=== PATIENT | female | born 1980 | race Caucasian/White ===

== ENCOUNTER 2023-08-19 13:53 | Emergency (ER) | payer OTHER, SELFPAY ==
[2023-08-19 14:07] VITALS: BP 125/76; PULSE 66; RESP 20; TEMP 36.1; O2SAT 100
--- NOTE | 2023-08-19 15:03 | ED.GENADULT ---
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 She is generally healthy. Last tetanus was about 10 years ago. She presents to ER today with an accidental wound to her right hand, middle finger. She was using a facing end trimmer after work when she actually caught her finger tip. She suffered a laceration to the distal finger pad just at the adjacent of the end of the finger nail plate. It creates a small flap of skin that was actively bleeding and now the flap skin is dusky. She is otherwise healthy. No history of diabetes or immunosuppression. No regular medications. No other injuries. Related Data Home Medications Medication Instructions Recorded Confirmed No Known Home Medications 08/19/23 08/19/23 Allergies Allergy/AdvReac Type Severity Reaction Status Date / Time No Known Drug Allergies Allergy Verified 08/19/23 14:19 Exam Narrative: Exam Narrative: Constitutional: Appears well-developed and well-nourished. Alert. Conversant. Non toxic. HENT: Head: Atraumatic. Nose: Nose normal. Mouth/Throat: Oral mucosa is clear and moist. no trismus. Pharynx normal. Tonsils symmetric. No tonsillar enlargement, erythema, or exudate. Eyes: Conjunctivae normal. EOM normal. Pupils equal, round, and reactive to light. No scleral icterus. Neck: Normal range of motion. Neck supple. No tracheal deviation present. Cardiovascular: Normal rate, regular rhythm. Symmetric radial artery pulses . Initially no active bleeding and the flap of skin at the distal finger pad is dusky. After I washed the wound is bleeding with dark red venous oozing. After suturing the flap remains dusky. Pulmonary/Chest: Effort normal. No stridor. No respiratory distress. Musculoskeletal: RUE: Normal range of motion. No tenderness. No deformity. There is a laceration at the distal pad of the right 3rd digit finger pad. There are 2 lacerations. One is linear and gaping about 1 mm. Total length about 1 cm that 1. There is a 2nd laceration that creates a oval shaped flap. Length of this laceration is approximately 1.5 cm and length of the flap is about 0.5 x 1 cm. This laceration does extend on to the distal nail bed just underneath the white part of the distal fingernail. No evidence for other finger nail or nail bed laceration. No exposed bone or evidence for fracture. Intact flexion and extension of the D IP, PIP, MCP. LUE: Normal range of motion. No tenderness. No deformity RLE: Normal range of motion. No edema. No tenderness. No deformity LLE: Normal range of motion. No edema. No tenderness. No deformity Neurological: Alert and oriented to person, place, and time. Normal strength. CN II-VII intact. No sensory deficit. GCS eye subscore is 4. GCS verbal subscore is 5. GCS motor subscore is 6. Normal coordination Skin: Skin is warm and dry. No rash noted. No pallor. Normal capillary refill. Psychiatric: Normal mood. Normal affect. Const: Vital Signs, click to edit/add: Vital Signs - 24 hr 08/19/23 14:07 Temperature 97.0 F L Pulse Rate [Left P ulse Oximeter] 66 Respiratory Rate 20 Blood Pressure [Ri ght Upper Arm] 125/76 Pulse Oximetry 100 Oxygen Delivery Me thod Room Air Course Vital Signs Vital signs: Initial Vital Signs Temperature 97.0 F L 08/19/23 14:07 Temperature Source Temporal Artery Scan 08/19/23 14:07 Pulse Rate 66 08/19/23 14:07 Pulse Rhythm Regular 08/19/23 14:07 Pulse Strength 3+ Normal 08/19/23 14:07 Respiratory Rate 20 08/19/23 14:07 Blood Pressure 125/76 08/19/23 14:07 Blood Pressure Mean 92 08/19/23 14:07 Blood Pressure Position Sitting 08/19/23 14:07 Pulse Oximetry 100 08/19/23 14:07 Oxygen Delivery Method Room Air 08/19/23 14:07 Vital Signs Temperature 97.0 F L 08/19/23 14:07 Pulse Rate 66 08/19/23 14:07 Respiratory Rate 20 08/19/23 14:07 Blood Pressure 125/76 08/19/23 14:07 Pulse Oximetry 100 08/19/23 14:07 Oxygen Delivery Method Room Air 08/19/23 14:07 Temperature 97.0 F L 08/19/23 14:07 Pulse Rate 66 08/19/23 14:07 Respiratory Rate 20 08/19/23 14:07 Blood Pressure 125/76 08/19/23 14:07 Pulse Oximetry 100 08/19/23 14:07 Oxygen Delivery Method Room Air 08/19/23 14:07 Medical Decision Making MDM Narrative Medical decision making narrative: Findings and exam are consistent with an complex finger tip lacerations which are repaired as noted above. One of the lacerations is a simple linear cut which was easily closed. The other when creates a flap tissue. The skin of the flap is fairly superficial and is somewhat dusky. Discussed with the patient that this flap of skin may not be viable but that tacking it down may give it a chance to revascularize and at least would create a temporary dressing over the wound while it heals from underneath. This flap does extend a little bit onto the very distal portion of the nail bed but at this point I do not think we need to remove the fingernail to repair nailbed portion. There is no evidence at this time to suggest any associated fracture or foreign body. There is no evidence to suggest tendon or arterial injury and patient is neurologically in tact. The patient is to follow up for suture removal as instructed in 7-10 days. Indications to seek urgent reevaluation and signs of infection (including but not limited to increasing pain, redness, swelling, fevers, and drainage) were reviewed. Tetanus is updated today. This is a clean and non-contaminated wound in which prophylactic antibiotics are not indicated. An understanding of the discharge instructions and need for follow up were verbally confirmed. Discharge Plan Discharge Clinical Impression: Finger laceration Patient Disposition: Home, Self-Care Condition: Stable Instructions: Finger Laceration (ED) Additional Instructions: As we discussed, keep the dressing on today and tomorrow. It is located take the dressing off for that and look at the wound carefully. Look for any signs of redness or swelling or pus that might indicate an infection. Also re-evaluate the skin of the flap. It may remained dusky and may not be viable. We hope, however that it will revascularize and pink up. If you have any concerns about how the wound is healing or any sign of infection, come back to the ER right away to be rechecked. Take the dressing off once per day and gently clean the wound. After it is clean reapply antibiotic ointment and a dressing to protect her finger tip well the sutures are in in the wound is healing. Wear the splint to protect her finger tip for the 1st few days to avoid bumping or injuring the healing wound. Prescriptions: No Action No Known Home Medications Stand Alone Forms: MyHealth Info Instructions Procedures Laceration Right hand 3rd digit (middle finger) finger tip laceration with flap: Verification/time out: correct patient, correct site and correct procedure Site: hand (Middle finger) Side (If applicable): right Size (cm): 1.5 Description: linear (1 cm) and flap (1.5 cm creating an oval shaped flap just adjacent to the distal end of the finger nail plate.) Depth: simple, single layer Local Anesthetic: bupivacaine 0.25% Amount of anesthesia used (mL): 3 Pre-repair: wound explored, irrigated extensively (And scrubbed using sterile saline and gauze.) and deep structures intact Skin layer closed with: nylon Size (cm): 5-0 Number of sutures: 6 Technique: simple, interrupted
[2023-08-19] MEDS: TETANUS/DIPHTH/PERTUSSIS 0.5 ML SYRINGE IM (16:00)
[2023-08-19 16:24] VITALS: BP 115/81; PULSE 63; RESP 16; O2SAT 100
== END 2023-08-19 16:25 | disposition home or self-care (01) ==
LOC: ED 16:11
PROVIDERS: Emergency Provider Emergency Medicine; PCP Family Medicine
DX: S61.312A Laceration without foreign body of right middle finger with damage to nail, initial encounter (principal); W29.3XXA Contact with powered garden and outdoor hand tools and machinery, initial encounter
CPT/HCPCS: 12001; 90471; 90715; 99282; 99283